=== PATIENT | male | born 1950 | race Caucasian/White ===

== ENCOUNTER 2020-04-25 20:33 | Observation (INO) ==
[2020-04-25] MEDS ORDERED: 0.9 % Sodium Chloride 1,000 ML IVC ONE ×2 (21:09→22:14)
[2020-04-25 21:16] LABS: VBG HCO3 14 mEq/L (21-27); VBG PCO2 24 mmHg (41-51); VBG PH 7.38 pH Units (7.32-7.42); VBG PO2 191 mmHg (25-50)
[2020-04-25 21:45] LABS: Bilirubin,Urine Negative (Negative); Blood,Urine Negative (Negative); Clarity,Urine Clear (Clear); Color,Urine Light-Yellow (Yellow); Glucose,Urine (UA) >=1000 mg/dL (Normal); Ketones,Urine Negative (Negative); Leukocyte Esterase,Urine Negative (Negative); Nitrite,Urine Negative (Negative); PH,Urine 5.5 pH Units (5.0-8.0); Protein,Urine Negative (Neg-Trace); RBC,Urine 0-3 per hpf (0-3); Urobilinogen,Urine Normal (Normal); WBC,Urine 0-3 per hpf (0-3)
[2020-04-25 21:45] LABS: Basophils # 0.1 K/mcL (0.0-0.2); Basophils % 0.7 %; Eosinophils # 0.1 K/mcL (0.0-0.6); Eosinophils % 0.9 %; Hemoglobin 14.6 g/dL (12.9-16.9); Immature Granulocytes % 0.3 % (0-4); Lymphocytes # 3.7 K/mcL (0.6-4.6); Lymphocytes % 31.5 %; Mean Corpuscular Volume 85.5 fL (83.0-100.0); Mean Platelet Volume 11.3 fL (9.4-12.4); Monocytes # 1.1 K/mcL (0.0-1.3); Monocytes % 9.6 %; Neutrophils # 6.7 K/mcL (1.6-8.9); Platelet Count 279 K/mcL (140-400); Red Blood Count 5.03 M/mcL (4.19-5.50); Red Cell Distribution Width 13.4 % (11.5-14.5); White Blood Count 11.8 K/mcL (4.3-11.1)
[2020-04-25 22:04] LABS: BUN/Creatinine Ratio 22 (6-26); Blood Urea Nitrogen 41 mg/dL (8-23); Calcium 9.3 mg/dL (8.6-10.3); Carbon Dioxide 16 mEq/L (23-29); Chloride 94 mEq/L (98-107); Glucose 621 mg/dL (70-105); Magnesium 1.9 mg/dL (1.6-2.6); Osmolality,Calculated 299 (280-300); Potassium 4.3 mEq/L (3.5-5.1); Sodium 125 mEq/L (136-145); Troponin I < 0.03 ng/mL (< 0.04); eGFR For African Americans 43 (> 60); eGFR For Non-African Americans 35 (> 60)
[2020-04-25] MEDS ORDERED: *HR* Dextrose 50 % in Water (Vial) 50 ML VIAL IVP PRN ×2 (22:44→23:54)
[2020-04-25] MEDS ORDERED: Insulin Human Regular 100 UNIT in 0.9 % Sodium Chloride 100 ML IVC SCH (22:45)
[2020-04-25] MEDS ORDERED: Naloxone 0.4 MG/ML INJ IVP PRN (23:50)
[2020-04-25] MEDS ORDERED: D5% in Water 1,000 ML IVC PRN (23:54)
[2020-04-25] MEDS ORDERED: Dextrose Gel 15 GM/37.5 ML TUBE PO PRN ×2 (23:54)
[2020-04-26 05:29] LABS: Hematocrit 37.1 % (37.5-50.1); Mean Corpuscular Hemoglobin 29.3 pg (28.0-33.3); Mean Corpuscular Volume 83.6 fL (83.0-100.0); Mean Platelet Volume 10.7 fL (9.4-12.4); Platelet Count 238 K/mcL (140-400); Red Blood Count 4.44 M/mcL (4.19-5.50); Red Cell Distribution Width 13.2 % (11.5-14.5); White Blood Count 11.7 K/mcL (4.3-11.1)
[2020-04-26 05:48] LABS: Alanine Aminotransferase 10 Units/L (7-52); Albumin 3.8 g/dL (3.5-5.7); Albumin/Globulin Ratio 1.7 (1.1-2.2); Alkaline Phosphatase 59 Units/L (34-104); Aspartate Amino Transferase 10 Units/L (13-39); BUN/Creatinine Ratio 24 (6-26); Bilirubin,Total 0.7 mg/dL (0.3-1.0); Blood Urea Nitrogen 33 mg/dL (8-23); Calcium 8.9 mg/dL (8.6-10.3); Carbon Dioxide 19 mEq/L (23-29); Chloride 105 mEq/L (98-107); Globulin 2.3 g/dL (2.4-3.5); Glucose 110 mg/dL (70-105); Osmolality,Calculated 286 (280-300); Potassium 3.3 mEq/L (3.5-5.1); Sodium 134 mEq/L (136-145); Total Protein 6.1 g/dL (6.4-8.9); eGFR For African Americans > 60 (> 60); eGFR For Non-African Americans 50 (> 60)
[2020-04-26] MEDS: Insulin LISPRO 300 UNITS/3 ML VIAL SQ SCH ×6 (08:46→16:55)
[2020-04-26] MEDS ORDERED: lisinopriL 10 MG TABLET PO SCH (09:00)
[2020-04-26 15:38] LABS: BUN/Creatinine Ratio 24 (6-26); Blood Urea Nitrogen 29 mg/dL (8-23); Calcium 8.6 mg/dL (8.6-10.3); Carbon Dioxide 19 mEq/L (23-29); Chloride 105 mEq/L (98-107); Glucose 273 mg/dL (70-105); Osmolality,Calculated 288 (280-300); Potassium 4.2 mEq/L (3.5-5.1); Sodium 131 mEq/L (136-145); eGFR For African Americans > 60 (> 60); eGFR For Non-African Americans 59 (> 60)
[2020-04-26] MEDS ORDERED: Insulin DETEMIR 100 UNIT/ML X5UNITS SQ SCH (21:00)
[2020-04-26] MEDS ORDERED: Latanoprost 2.5 ML BOTTLE BOTH EYES SCH (21:00)
[2020-04-27 01:23] LABS: Hematocrit 38.2 % (37.5-50.1); Hemoglobin 12.9 g/dL (12.9-16.9); Mean Corpuscular HGB Conc 33.8 g/dL (31.6-35.5); Mean Corpuscular Hemoglobin 28.9 pg (28.0-33.3); Mean Corpuscular Volume 85.5 fL (83.0-100.0); Platelet Count 206 K/mcL (140-400); Red Blood Count 4.47 M/mcL (4.19-5.50); Red Cell Distribution Width 13.3 % (11.5-14.5); White Blood Count 8.6 K/mcL (4.3-11.1)
[2020-04-27 01:42] LABS: BUN/Creatinine Ratio 21 (6-26); Blood Urea Nitrogen 24 mg/dL (8-23); Calcium 8.6 mg/dL (8.6-10.3); Carbon Dioxide 17 mEq/L (23-29); Chloride 105 mEq/L (98-107); Glucose 233 mg/dL (70-105); Magnesium 1.6 mg/dL (1.6-2.6); Osmolality,Calculated 284 (280-300); Potassium 3.9 mEq/L (3.5-5.1); Sodium 131 mEq/L (136-145); eGFR For African Americans > 60 (> 60); eGFR For Non-African Americans > 60 (> 60)
[2020-04-27] MEDS: Insulin LISPRO 300 UNITS/3 ML VIAL SQ SCH ×4 (08:26→11:34)
[2020-04-27 16:31] VITALS: BP 147/82
== END 2020-04-27 17:36 | disposition home or self-care (01) ==
LOC: EMEROOARM 20:33 → 2ANU 20:33 → SUATTDRO 23:25 → 2ANU 04-26 00:07
PROVIDERS: ADMIT Internal Medicine; ATTEND Internal Medicine

== ENCOUNTER 2021-03-01 13:26 | Inpatient (IN) ==
[2021-03-01 13:52] LABS: Mean Platelet Volume 9.8 fL (9.4-12.4); Red Cell Distribution Width 13.2 % (11.5-14.5)
[2021-03-01 13:53] LABS: Hematocrit 41.3 % (37.5-50.1); Hemoglobin 14.1 g/dL (12.9-16.9); Mean Corpuscular HGB Conc 34.1 g/dL (31.6-35.5); Mean Corpuscular Hemoglobin 29.6 pg (28.0-33.3); Mean Corpuscular Volume 86.6 fL (83.0-100.0); Platelet Count 468 K/mcL (140-400); Red Blood Count 4.77 M/mcL (4.19-5.50)
[2021-03-01 14:08] LABS: White Blood Count 30.3 K/mcL (4.3-11.1)
[2021-03-01 14:19] LABS: Potassium 6.6 mEq/L (3.5-5.1)
[2021-03-01] MEDS ORDERED: 0.9 % Sodium Chloride 1,000 ML IVC ONE ×3 (14:20→14:44)
[2021-03-01] MEDS ORDERED: Ondansetron 4 MG/2 ML VIAL IVP ONE (14:29)
[2021-03-01 14:36] LABS: Lymphocytes # 0.6 K/mcL (0.6-4.6); Monocytes # 6.1 K/mcL (0.0-1.3); Neutrophils # 23.6 K/mcL (1.6-8.9); Platelet Estimate Increased (Normal); Toxic Granulation Present (Not Present)
[2021-03-01 14:44] LABS: VBG HCO3 9 mEq/L (21-27); VBG PCO2 22 mmHg (41-51); VBG PH 7.22 pH Units (7.32-7.42); VBG PO2 75 mmHg (25-50)
[2021-03-01 14:45] LABS: Albumin 4.1 g/dL (3.5-5.7); Albumin/Globulin Ratio 1.4 (1.1-2.2); Bilirubin,Direct 0.1 mg/dL (0.0-0.2); Bilirubin,Indirect 0.4 mg/dL (0.0-1.0); Bilirubin,Total 0.5 mg/dL (0.3-1.0); Magnesium 1.9 mg/dL (1.6-2.6); Phosphorous 19.4 mg/dL (2.7-4.5); Total Protein 7.1 g/dL (6.4-8.9)
[2021-03-01] MEDS ORDERED: Pantoprazole 40 MG VIAL IVP ONE (16:55)
[2021-03-01] MEDS ORDERED: *HR* HYDROcodone/Acet 5/325 mg TABLET PO PRN (17:14)
[2021-03-01] MEDS ORDERED: Naloxone 0.4 MG/ML INJ IVP PRN (17:14)
[2021-03-01 17:16] LABS: Albumin 3.6 g/dL (3.5-5.7); Albumin/Globulin Ratio 1.4 (1.1-2.2); Bilirubin,Total 0.4 mg/dL (0.3-1.0); Calcium 6.3 mg/dL (8.6-10.3); Globulin 2.6 g/dL (2.4-3.5); Potassium 6.2 mEq/L (3.5-5.1); Total Protein 6.2 g/dL (6.4-8.9)
[2021-03-01] MEDS ORDERED: Ondansetron 4 MG/2 ML VIAL IVP PRN (17:25)
[2021-03-01] MEDS ORDERED: *HR* Dextrose 50 % in Water (Vial) 50 ML VIAL IVP PRN (17:28)
[2021-03-01] MEDS ORDERED: Insulin Regular, Human 100 UNIT/ML IV PRN (17:28)
[2021-03-01 17:29] LABS: Troponin I 0.04 ng/mL (< 0.04)
[2021-03-01] MEDS ORDERED: levoFLOXacin 750 MG/150 ML 750 MG/150 ML BAG IVPB ONE (17:30)
[2021-03-01] MEDS ORDERED: Sodium Bicarbonate 150 MEQ in 0.45 % Sodium Chloride 1,000 ML IVC SCH (17:30)
[2021-03-01] MEDS ORDERED: Ondansetron 4 MG/2 ML VIAL ONE (17:31)
[2021-03-01 18:26] LABS: Amorphous Sediment,Urine Few per hpf (None-Few); Bacteria,Urine Few per hpf (None-Few); Bilirubin,Urine Negative (Negative); Blood,Urine Moderate (Negative); Clarity,Urine Turbid (Clear); Color,Urine Yellow (Yellow); Glucose,Urine (UA) 200 mg/dL (Normal); Hyaline Casts,Urine Moderate per lpf (None Seen); Ketones,Urine Negative (Negative); Leukocyte Esterase,Urine Negative (Negative); Mucus,Urine Few per lpf (None-Few); Nitrite,Urine Negative (Negative); Protein,Urine 100 mg/dL (Neg-Trace); RBC,Urine 0-3 per hpf (0-3); Specific Gravity,Urine 1.018 (1.010-1.025); Urobilinogen,Urine Normal (Normal)
[2021-03-01 18:26] LABS: ABG Base Excess -14 mEq/L (-2 to 3); ABG HCO3 11 mEq/L (21-27); ABG Oxygen Saturation 96 % (95-98); ABG PCO2 23 mmHg (35-45); ABG PH 7.28 pH Units (7.32-7.45); ABG PO2 90 mmHg (85-104); ABG TCO2 11 mEq/L (20-26)
[2021-03-01 18:43] LABS: Adenovirus Not Detected (Not Detect); Bordetella Pertussis Not Detected (Not Detect); Chlamydophila pneumoniae Not Detected (Not Detect); Coronavirus 229E Not Detected (Not Detect); Coronavirus HKU1 Not Detected (Not Detect); Coronavirus NL63 Not Detected (Not Detect); Coronavirus OC43 Not Detected (Not Detect); Human Metapneumovirus Not Detected (Not Detect); Human Rhinovirus/Enterovirus Not Detected (Not Detect); Influenza A Subtype 2009 H1 Not Detected (Not Detect); Influenza B Not Detected (Not Detect); Mycoplasma pneumoniae Not Detected (Not Detect); Parainfluenza Virus 1 Not Detected (Not Detect); Parainfluenza Virus 2 Not Detected (Not Detect); Parainfluenza Virus 3 Not Detected (Not Detect); Parainfluenza Virus 4 Not Detected (Not Detect); Respiratory Syncytial Virus Not Detected (Not Detect); SARS-CoV-2 Not Detected (Not Detect)
[2021-03-01 18:50] LABS: Protein/Creatinine Ratio,Urine 1.66 mg/mg (0.00-0.20)
[2021-03-01 20:10] LABS: BUN/Creatinine Ratio 11 (6-26); Blood Urea Nitrogen 121 mg/dL (8-23); Calcium 6.3 mg/dL (8.6-10.3); Carbon Dioxide 10 mEq/L (23-29); Chloride 91 mEq/L (98-107); Glucose 212 mg/dL (70-105); Osmolality,Calculated 327 (280-300); Potassium 6.4 mEq/L (3.5-5.1); Salicylate < 2.5 mg/dL (15.0-30.0); Sodium 136 mEq/L (136-145); eGFR For African Americans 6 (> 60); eGFR For Non-African Americans 5 (> 60)
[2021-03-01] MEDS: *HR* Heparin 5,000 UNIT/ML VIAL SQ SCH (20:43)
[2021-03-01] MEDS: Metoclopramide 10 MG/2 ML VIAL IVP PRN (22:04)
[2021-03-01] MEDS: Sodium Bicarbonate 150 MEQ in Water for inj. (sterile) 1,000 ML IVC SCH (22:05)
[2021-03-01] MEDS: SODIUM ZIRCONIUM CYCLOSILICATE 5 GM POWD.PACK PO SCH (22:05)
[2021-03-01] MEDS: D5% in 0.45% NACL 1,000 ML IVC PRN (23:23)
[2021-03-01 23:36] LABS: Calcium 6.2 mg/dL (8.6-10.3); Potassium 5.9 mEq/L (3.5-5.1)
[2021-03-02] MEDS: Ondansetron 4 MG/2 ML VIAL IVP PRN ×2 (01:03→10:42)
[2021-03-02] MEDS ORDERED: Saline Nasal Spray 44 ML BOTTLE NS PRN (02:47)
[2021-03-02] MEDS: D5% in 0.45% NACL 1,000 ML IVC PRN ×2 (03:41→07:54)
[2021-03-02] MEDS: Metoclopramide 10 MG/2 ML VIAL IVP PRN ×2 (04:01→20:36)
[2021-03-02 04:10] LABS: Basophils % 0.1 %; Hematocrit 36.9 % (37.5-50.1); Immature Granulocytes % 0.4 % (0-4); Lymphocytes # 1.2 K/mcL (0.6-4.6); Lymphocytes % 7.5 %; Mean Corpuscular HGB Conc 33.3 g/dL (31.6-35.5); Mean Corpuscular Hemoglobin 28.9 pg (28.0-33.3); Mean Corpuscular Volume 86.6 fL (83.0-100.0); Mean Platelet Volume 9.7 fL (9.4-12.4); Monocytes # 1.6 K/mcL (0.0-1.3); Monocytes % 9.9 %; Neutrophils # 13.6 K/mcL (1.6-8.9); Platelet Count 301 K/mcL (140-400); Red Blood Count 4.26 M/mcL (4.19-5.50); Segmented Neutrophils % 82.1 %; White Blood Count 16.5 K/mcL (4.3-11.1)
[2021-03-02 04:11] LABS: Hemoglobin 12.3 g/dL (12.9-16.9)
[2021-03-02 04:32] LABS: Magnesium 1.5 mg/dL (1.6-2.6); Phosphorous 14.8 mg/dL (2.7-4.5)
[2021-03-02 05:35] LABS: Estimated Average Glucose 332 mg/dl; Hemoglobin A1C 13.2 %
[2021-03-02 05:39] LABS: Calcium 5.7 mg/dL (8.6-10.3); Potassium 5.6 mEq/L (3.5-5.1)
[2021-03-02] MEDS ORDERED: Magnesium Sulfate 1 GM/102 ML PIGGYBACK IVPB ONE (05:55)
[2021-03-02] MEDS: Calcium Gluconate 1gm/50mL 1 GM/50 ML BAG IVPB SCH ×2 (06:22→07:00)
[2021-03-02] MEDS: *HR* Heparin 5,000 UNIT/ML VIAL SQ SCH ×2 (06:22→16:57)
[2021-03-02 06:50] LABS: VBG HCO3 12 mEq/L (21-27); VBG PCO2 22 mmHg (41-51); VBG PH 7.35 pH Units (7.32-7.42); VBG PO2 98 mmHg (25-50)
[2021-03-02 07:15] LABS: Calcium 5.4 mg/dL (8.6-10.3); Potassium 5.4 mEq/L (3.5-5.1)
[2021-03-02] MEDS: SODIUM ZIRCONIUM CYCLOSILICATE 5 GM POWD.PACK PO SCH ×2 (07:52→10:25)
[2021-03-02] MEDS: Sodium Bicarbonate 150 MEQ in Water for inj. (sterile) 1,000 ML IVC SCH ×3 (07:52→15:11)
[2021-03-02] MEDS ORDERED: Dextrose Gel 15 GM/37.5 ML TUBE PO PRN ×2 (08:57)
[2021-03-02] MEDS ORDERED: D5% in Water 1,000 ML IVC PRN (08:57)
[2021-03-02] MEDS ORDERED: Insulin DETEMIR 100 UNIT/ML X5UNITS SUBQ SCH (09:00)
[2021-03-02] MEDS: *HR* Dextrose 50 % in Water (Vial) 50 ML VIAL IVP PRN ×2 (10:05→11:11)
[2021-03-02] MEDS ORDERED: D10% in Water 500 ML IVC SCH (11:45)
[2021-03-02 12:27] LABS: INR 1.3; Prothrombin Time 14.5 Seconds (9.4-12.1)
[2021-03-02 12:33] LABS: Calcium 5.7 mg/dL (8.6-10.3); Potassium 4.5 mEq/L (3.5-5.1)
[2021-03-02 12:33] LABS: ABG Base Excess -7 mEq/L (-2 to 3); ABG HCO3 16 mEq/L (21-27); ABG Oxygen Saturation 97 % (95-98); ABG PCO2 25 mmHg (35-45); ABG PH 7.42 pH Units (7.32-7.45); ABG PO2 89 mmHg (85-104); ABG TCO2 17 mEq/L (20-26)
[2021-03-02 12:38] LABS: Basophils % 0.1 %; Hematocrit 33.9 % (37.5-50.1); Hemoglobin 11.7 g/dL (12.9-16.9); Immature Granulocytes % 0.4 % (0-4); Lymphocytes # 1.6 K/mcL (0.6-4.6); Lymphocytes % 10.8 %; Mean Corpuscular HGB Conc 34.5 g/dL (31.6-35.5); Mean Corpuscular Hemoglobin 28.8 pg (28.0-33.3); Mean Corpuscular Volume 83.5 fL (83.0-100.0); Mean Platelet Volume 9.7 fL (9.4-12.4); Monocytes % 13.1 %; Neutrophils # 11.4 K/mcL (1.6-8.9); Platelet Count 289 K/mcL (140-400); Red Blood Count 4.06 M/mcL (4.19-5.50); Red Cell Distribution Width 12.6 % (11.5-14.5); Segmented Neutrophils % 75.6 %; White Blood Count 15.1 K/mcL (4.3-11.1)
[2021-03-02 12:42] LABS: Albumin 3.2 g/dL (3.5-5.7); Albumin/Globulin Ratio 1.5 (1.1-2.2); Bilirubin,Total 0.4 mg/dL (0.3-1.0); Globulin 2.1 g/dL (2.4-3.5); Total Protein 5.3 g/dL (6.4-8.9); Troponin I 0.04 ng/mL (< 0.04)
[2021-03-02] MEDS: Insulin LISPRO 300 UNITS/3 ML VIAL SUBQ SCH ×3 (13:12→20:40)
[2021-03-02] MEDS: Calcium Acetate 667 MG CAPSULE PO SCH ×2 (13:12→16:57)
[2021-03-02] MEDS: Aspirin 81 MG TAB.CHEW PO SCH (13:28)
[2021-03-02] MEDS ORDERED: *HR* LORazepam 2 MG/ML VIAL IVP ONE (14:23)
[2021-03-02 19:45] LABS: Calcium 5.7 mg/dL (8.6-10.3); Potassium 4.5 mEq/L (3.5-5.1)
[2021-03-03] MEDS: Insulin LISPRO 300 UNITS/3 ML VIAL SUBQ SCH ×6 (00:13→20:55)
[2021-03-03] MEDS: Sodium Bicarbonate 150 MEQ in Water for inj. (sterile) 1,000 ML IVC SCH (03:11)
[2021-03-03] MEDS: *HR* Heparin 5,000 UNIT/ML VIAL SQ SCH ×2 (06:10→17:31)
[2021-03-03 08:00] LABS: Basophils % 0.2 %; Hemoglobin 12.8 g/dL (12.9-16.9); Immature Granulocytes % 0.4 % (0-4); Lymphocytes % 9.8 %; Mean Corpuscular HGB Conc 34.6 g/dL (31.6-35.5); Mean Corpuscular Hemoglobin 28.6 pg (28.0-33.3); Mean Corpuscular Volume 82.8 fL (83.0-100.0); Mean Platelet Volume 10.1 fL (9.4-12.4); Monocytes # 0.7 K/mcL (0.0-1.3); Monocytes % 7.2 %; Neutrophils # 8.5 K/mcL (1.6-8.9); Platelet Count 262 K/mcL (140-400); Red Blood Count 4.47 M/mcL (4.19-5.50); Red Cell Distribution Width 12.6 % (11.5-14.5); Segmented Neutrophils % 82.4 %; White Blood Count 10.3 K/mcL (4.3-11.1)
[2021-03-03 08:21] LABS: Magnesium 1.5 mg/dL (1.6-2.6); Phosphorous 8.9 mg/dL (2.7-4.5); Potassium 3.6 mEq/L (3.5-5.1)
[2021-03-03] MEDS: Aspirin 81 MG TAB.CHEW PO SCH (08:45)
[2021-03-03] MEDS: SODIUM ZIRCONIUM CYCLOSILICATE 5 GM POWD.PACK PO SCH (08:46)
[2021-03-03] MEDS: Calcium Acetate 667 MG CAPSULE PO SCH ×3 (08:46→17:31)
[2021-03-03 09:04] LABS: Calcium 5.8 mg/dL (8.6-10.3)
[2021-03-03] MEDS ORDERED: levoFLOXacin 500 MG/100 ML 500 MG/100 ML BAG IVPB SCH (18:00)
[2021-03-03] MEDS ORDERED: Insulin DETEMIR 100 UNIT/ML X5UNITS SUBQ SCH (21:00)
[2021-03-04] MEDS: Insulin LISPRO 300 UNITS/3 ML VIAL SUBQ SCH ×5 (00:27→19:58)
[2021-03-04 02:07] LABS: Albumin 3.4 g/dL (3.5-5.7); Magnesium 1.8 mg/dL (1.6-2.6); Phosphorous 5.3 mg/dL (2.7-4.5)
[2021-03-04] MEDS: *HR* Heparin 5,000 UNIT/ML VIAL SQ SCH ×2 (05:28→16:47)
[2021-03-04] MEDS: Insulin DETEMIR 100 UNIT/ML X5UNITS SUBQ SCH ×2 (08:52→19:57)
[2021-03-04] MEDS: Aspirin 81 MG TAB.CHEW PO SCH (08:52)
[2021-03-04] MEDS: Calcium Acetate 667 MG CAPSULE PO SCH (09:13)
[2021-03-04] MEDS ORDERED: Calcium Gluconate 1gm/50mL 1 GM/50 ML BAG IVPB PRN (09:45)
[2021-03-04] MEDS ORDERED: Ergocalciferol (VIT D2) 50,000 UNIT (1.25MG) CAP PO SCH (09:45)
[2021-03-04] MEDS ORDERED: Ringers Solution, Lactated 1,000 ML IVC SCH (11:30)
[2021-03-05 01:48] LABS: Basophils % 0.3 %; Eosinophils # 0.2 K/mcL (0.0-0.6); Eosinophils % 2.2 %; Hematocrit 35.7 % (37.5-50.1); Hemoglobin 12.2 g/dL (12.9-16.9); Immature Granulocytes % 0.5 % (0-4); Lymphocytes # 2.8 K/mcL (0.6-4.6); Mean Corpuscular HGB Conc 34.2 g/dL (31.6-35.5); Mean Corpuscular Hemoglobin 28.8 pg (28.0-33.3); Mean Corpuscular Volume 84.4 fL (83.0-100.0); Mean Platelet Volume 9.9 fL (9.4-12.4); Monocytes % 11.1 %; Neutrophils # 5.1 K/mcL (1.6-8.9); Platelet Count 237 K/mcL (140-400); Red Blood Count 4.23 M/mcL (4.19-5.50); Red Cell Distribution Width 12.2 % (11.5-14.5); Segmented Neutrophils % 55.9 %; White Blood Count 9.2 K/mcL (4.3-11.1)
[2021-03-05 02:11] LABS: Calcium 6.9 mg/dL (8.6-10.3); Magnesium 1.2 mg/dL (1.6-2.6); Phosphorous 2.5 mg/dL (2.7-4.5); Potassium 3.4 mEq/L (3.5-5.1)
[2021-03-05] MEDS: *HR* Heparin 5,000 UNIT/ML VIAL SQ SCH (05:14)
[2021-03-05] MEDS ORDERED: Potassium Phosphate 44 MEQ in 0.9 % Sodium Chloride 250 ML IVPB ONE (07:29)
[2021-03-05] MEDS: Aspirin 81 MG TAB.CHEW PO SCH (08:14)
[2021-03-05] MEDS: Insulin LISPRO 300 UNITS/3 ML VIAL SUBQ SCH ×4 (08:15→12:01)
[2021-03-05] MEDS ORDERED: Finasteride 5 MG TABLET PO SCH (09:00)
[2021-03-05] MEDS ORDERED: Insulin DETEMIR 100 UNIT/ML X5UNITS SUBQ SCH (09:00)
[2021-03-05 11:20] VITALS: BP 136/68; PULSE 80; TEMP 98; O2SAT 94
== END 2021-03-05 17:00 | disposition home or self-care (01) | DRG 682 ==
LOC: EMEROOARM 13:26 → ICNU 17:28 → SUATTDRO 17:28 → 2NNU 18:34 → 3BNU 03-04 12:11
PROVIDERS: ADMIT Family Medicine; ATTEND Internal Medicine